=== PATIENT | male | born 2000 | race African-American/Black ===

== ENCOUNTER 2024-07-14 03:01 | Emergency (ER) | payer MEDICAID ==
[~2024-07-14] VITALS: Ht 190.5 cm; Wt 109.0 kg
[2024-07-14 03:23] VITALS: O2SAT 100
[2024-07-14] MEDS ORDERED: MUPI1OIN4 TP (03:30)
[2024-07-14] MEDS ORDERED: IBUP-2029 MT (03:30)
[2024-07-14] MEDS ORDERED: SULF1TAB48 MT (03:30)
[2024-07-14 03:49] VITALS: BP 110/66; PULSE 75; RESP 18; TEMP 37; O2SAT 97
== END 2024-07-14 04:05 | disposition home or self-care (01) ==
LOC: ER 03:01
DX: L02.413 Cutaneous abscess of right upper limb (principal); Z79.899 Other long term (current) drug therapy
CPT/HCPCS: 99283

== ENCOUNTER 2024-12-01 22:53 | Emergency (ER) | payer SELFPAY ==
[~2024-12-01] VITALS: Ht 188 cm; Wt 109.0 kg
[~2024-12-01 22:53] MED LIST: IBUP-1455 MT; MUPI1OIN4 TP; SULF1TAB48 MT
[2024-12-01 23:13] VITALS: O2SAT 98
[2024-12-02] MEDS ORDERED: IBUP-1455 MT (02:50)
[2024-12-02] MEDS ORDERED: BO1 TP (02:50)
[2024-12-02] MEDS ORDERED: CEPH500T MT (02:50)
[2024-12-02] MEDS ORDERED: SULF1TAB48 MT (02:52)
[2024-12-02 03:09] VITALS: BP 121/66; PULSE 55; RESP 18; TEMP 36.6; O2SAT 100
== END 2024-12-02 03:11 | disposition home or self-care (01) ==
LOC: ER 22:53
DX: L60.0 Ingrowing nail (principal); Z79.899 Other long term (current) drug therapy
CPT/HCPCS: 99283